=== PATIENT | male | born 1975 | race Two or more races ===

== ENCOUNTER 2018-12-22 20:03 | Emergency (ER) | payer OTHER, SELFPAY ==
[~2018-12-22] VITALS: Ht 172.7 cm; Wt 93.8 kg
[2018-12-22] MEDS ORDERED: LABETALOL 5MG/ML SYR 20 MG/4 ML SYRINGE IV ONE ×2 (20:45→21:30)
[2018-12-22] MEDS ORDERED: ALTEPLASE IV STA (20:57)
[2018-12-22] MEDS ORDERED: ALTEPLASE 100MG/VIAL IV STA (20:57)
[2018-12-22] MEDS ORDERED: IOHEXOL-350 100 ML BOTTLE ONE (21:09)
[2018-12-22] MEDS ORDERED: LABETALOL HCL 20MG/4ML CARPUJECT IV ONE (21:15)
[2018-12-22 21:23] LABS: BASOPHILS % 0.7 % (0.0-2.0); EOSINOPHILS % 7.1 % (0.0-5.0); HEMATOCRIT. 46.3 % (42.0-52.0); HEMOGLOBIN. 15.6 g/dL (14.0-18.0); LYMPHOCYTES % 34.1 % (20.0-50.0); MEAN CORPUSCULAR HEMOGLOBIN 28.2 pg (28.0-32.0); MEAN CORPUSCULAR VOLUME 83.5 fL (80.0-94.0); MEAN PLATELET VOLUME 8.3 fl (7.4-10.4); NEUTROPHILS % 48.1 % (40.0-76.0); PLATELET 213 x1000/uL (130-400); RED BLOOD CELL COUNT 5.55 mill/uL (4.7-6.1); RED CELL DISTRIBUTION WIDTH 13.2 % (11.6-14.6)
[2018-12-22 21:27] LABS: CHLORIDE 100 mEq/L (98-107)
[2018-12-22 21:31] LABS: INR 1.1; PARTIAL THROMBOPLASTIN TIME 26.2 sec (23.4-31.0); PROTHROMBIN TIME 10.7 sec (9.1-11.1)
[2018-12-22 21:32] LABS: ETHANOL BLOOD < 10 mg/dL
[2018-12-22 21:35] LABS: LDL CHOLESTEROL 127 mg/dL (5-100)
[2018-12-22] MEDS ORDERED: NICARDIPINE 40MG/200ML PREMIX 200 ML IV STA (21:39)
[2018-12-22] MEDS ORDERED: *NO ASPIRIN X 24 HOURS XX SCH (22:17)
[2018-12-22 23:21] VITALS: BP 139/77
== END 2018-12-22 23:44 | disposition short-term general hospital (02) ==
LOC: ER 20:03 → CANBEDREQ 12-23 01:42
DX: I63.9 Cerebral infarction, unspecified (principal); I16.1 Hypertensive emergency; I10 Essential (primary) hypertension; E11.9 Type 2 diabetes mellitus without complications
CPT/HCPCS: 36415; 70450; 70496; 70498; 71045; 80053; 82962; 83721; 84484; 85025; 85610; 85730; 86850; 86900; 86901; 93005; 99291; G0482; J2997; J3490; Q9967; Z7610